=== PATIENT | female | born 1960 | race Caucasian/White ===

== ENCOUNTER → 2016-08-15 | Outpatient (CLI) | payer BC ==
--- NOTE | 2016-08-15 15:05 | KCIC ---
PROCEDURE Bilateral digital screening mammogram. HISTORY 55-year-old female presents for screening mammography. TECHNIQUE Full field digital craniocaudal, mediolateral oblique and exaggerated craniocaudal views of both breasts are obtained. Computer-aided detection is applied. COMPARISON 08/10/2015 and 07/31/2014 FINDINGS Breast parenchymal composition: Level C - Heterogeneously dense. There is no new suspicious mass, calcification or architectural distortion within either breast. There is stable nodule with adjacent biopsy clip and increased parenchymal density within the right axillary tail. There are few benign calcifications. IMPRESSION BI-RADS category 2: Benign finding. Annual mammography is recommended. Mammography is not 100% sensitive in detecting breast cancer. Therefore, a self breast exam and a clinical breast exam are very important. A negative mammogram does not negate a clinically suspicious finding and should not result in a delay in biopsying a clinically suspicious abnormality. This patient's information has been entered into a reminder system for the patient to be notified with the results of this examination and a target date for her next mammograms. Electronically signed by: Paloma Willoughby (Aug 15, 2016 15:03:14)
== END | disposition home or self-care (01) ==
LOC: KCIC MAMMO 14:35
PROVIDERS: ATTEND Family Medicine
DX: Z12.31 Encounter for screening mammogram for malignant neoplasm of breast (principal)
CPT/HCPCS: G0202; 77067